=== PATIENT | female | born 1990 | race African-American/Black ===

== ENCOUNTER 2019-12-09 13:57 | Emergency (ER) | payer MEDICAID ==
[~2019-12-09] VITALS: Ht 167.6 cm; Wt 67.7 kg
--- NOTE | 2019-12-09 14:46 | NUR ---
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 PT REPORTS SHE WAS DRINKING LAST NIGHT.
--- NOTE | 2019-12-09 15:04 | NUR ---
PT TO ROOM AT THIS TIME
--- NOTE | 2019-12-09 15:15 | NUR ---
CONTACT WITH PT, 29 YR OLD FEMALE HERE WITH C/O "A LOT OF VOMITING AND BODY ACHES AND MY STOMACH HAS BEEN KILLING ME" BEGAN ABOUT 0500. "NOT SURE IF IT IS ALCOHOL POISONING OR SOMETHING" DRINKING LAST NIGHT. LAST DRINK ABOUT 0300. PT LAYING ON GURNEY, SHIVERING.
[2019-12-09] MEDS ORDERED: ONDANSETRON 2MG/ML, 2ML ONE (15:25)
[2019-12-09 15:26] LABS: BASOPHILS # (AUTO) 0.04 x10^3/uL (0-0.1); BASOPHILS % (AUTO) 1 % (0-1); EOSINOPHILS # (AUTO) 0.03 x10^3/uL (0-0.4); EOSINOPHILS % (AUTO) 0 % (1-7); LYMPHOCYTES # (AUTO) 0.77 x10^3/uL (1-3.4); LYMPHOCYTES % (AUTO) 8 % (22-44); MD NO; MEAN CORPUSCULAR HEMOGLOBIN 29.9 pg (27.0-34.8); MEAN CORPUSCULAR VOLUME 90.7 fL (80-100); MEAN PLATELET VOLUME 8.2 fL (7.4-10.4); MONOCYTES # (AUTO) 0.31 x10^3/uL (0.2-0.8); MONOCYTES % (AUTO) 3 % (2-9); NEUTROPHILS # (AUTO) 8.46 x10^3/uL (1.8-6.8); NEUTROPHILS % (AUTO) 88 % (42-75); PLATELET COUNT 257 x10^3/uL (130-400)
[2019-12-09] MEDS ORDERED: MORPHINE SULFATE 4 MG/ML, 1ML ONE (15:26)
[2019-12-09] MEDS ORDERED: ONDANSETRON 2MG/ML, 2ML IVPush ONE (15:30)
[2019-12-09] MEDS ORDERED: SODIUM CHLORIDE FLUSH 10ML SYR IVF ONE (15:30)
[2019-12-09] MEDS ORDERED: MORPHINE SULFATE 4 MG/ML, 1ML IVPush PRN (15:30)
[2019-12-09] MEDS ORDERED: SODIUM CHLORIDE 0.9% 1,000ML IVBOLUS ONE (15:30)
--- NOTE | 2019-12-09 15:37 | NUR ---
PT MEDICATED FOR 10/10 PAIN AND NAUSEA ORDERED. IV INFUSING WITHOUT REDNESS/SWELLING. PT ASKING FOR WATER AND ICE CHIPS. DISCUSSED NPO AT THIS TIME R/T VOMITING. PT PROVIDED WITH LEMON GLYCERIN SWABS. CHEPE PAWS WARMER IN PLACE FOR PT COMFORT. AUTO BP AND PULSE OX IN PLACE. PT FRIEND AT BEDSIDE. PT AWARE URINE SPECIMAN NEEDED. VERBALIZED UNDERSTANDING. NO OTHER NEEDS EXPRESSED AT THIS TIME.
[2019-12-09 15:38] LABS: CHLORIDE 110 mmol/L (98-107)
[2019-12-09 15:39] LABS: ALANINE AMINOTRANSFERASE 22 U/L (12-78); ALBUMIN 3.9 g/dL (3.4-5.0); ANION GAP 7 mmol/L (5-15); CALCIUM 8.9 mg/dL (8.5-10.1); CREATININE 0.71 mg/dL (0.55-1.02)
[2019-12-09 15:43] LABS: ALKALINE PHOSPHATASE 63 U/L (45-117); BILIRUBIN,TOTAL 0.2 mg/dL (0.2-1.0); TOTAL PROTEIN 8.4 g/dL (6.4-8.2)
--- NOTE | 2019-12-09 16:15 | NUR ---
PER WE DO NOT NEED TO COLLECT A URINE SAMPLE. PT TO BE DC AFTER IVF.
--- NOTE | 2019-12-09 16:33 | NUR ---
PT PAIN DECREASED TO 5/10. DENIES N/V. TAKING SIPS OF PO FLUIDS. NO NEEDS EXPRESSED AT THIS TIME.
[2019-12-09 16:42] VITALS: BP 123/90
--- NOTE | 2019-12-09 16:42 | NUR ---
Patient given discharge instructions and they have confirmed that they understand the instructions. Patient ambulatory with steady gait.
== END 2019-12-09 16:44 | disposition home or self-care (01) ==
LOC: ED 15:42
DX: R10.33 Periumbilical pain (principal); R10.84 Generalized abdominal pain; R11.2 Nausea with vomiting, unspecified
CPT/HCPCS: 36415; 80053; 83690; 84703; 85025; 96361; 96374; 96375; 99284; J2270; J2405; J7030

== ENCOUNTER 2020-06-21 15:59 | Emergency (ER) | payer MEDICAID ==
[~2020-06-21] VITALS: Ht 165.1 cm; Wt 77.3 kg
[2020-06-21 16:03] VITALS: BP 127/76
[2020-06-21] MEDS ORDERED: PROPARACAINE OPHTH 0.5%, 15ML RIGHTEYE ONE (16:30)
[2020-06-21] MEDS ORDERED: FLUORESCEIN OPHTHALMIC 1 MG STRIP RIGHTEYE ONE (16:30)
[2020-06-21] MEDS ORDERED: FLUORESCEIN OPHTHALMIC 1 MG STRIP ONE (16:31)
[2020-06-21] MEDS ORDERED: PROPARACAINE OPHTH 0.5%, 15ML ONE (16:31)
== END 2020-06-21 17:15 | disposition home or self-care (01) ==
LOC: ED 16:30
DX: B30.1 Conjunctivitis due to adenovirus (principal)
CPT/HCPCS: 99283

== ENCOUNTER 2021-07-03 10:10 | Emergency (ER) | payer MEDICAID ==
[~2021-07-03] VITALS: Ht 162.6 cm; Wt 77.0 kg
[2021-07-03] MEDS ORDERED: KETOROLAC 30 MG/1 ML IVPush ONE (14:00)
[2021-07-03] MEDS ORDERED: DIPHENHYDRAMINE 50 MG/ML, 1ML IVPush ONE (14:00)
[2021-07-03] MEDS ORDERED: METOCLOPRAMIDE 5 MG/ML, 2ML IVPush ONE (14:00)
[2021-07-03] MEDS ORDERED: SODIUM CHLORIDE FLUSH 10ML SYR IVF ONE (14:00)
[2021-07-03] MEDS ORDERED: SODIUM CHLORIDE 0.9% 1,000ML IVBOLUS ONE (14:00)
--- NOTE | 2021-07-03 15:22 | NUR ---
cosmetic surgeon note: Pt to room from lobby.
[2021-07-03] MEDS ORDERED: KETOROLAC 30 MG/1 ML ONE (15:36)
[2021-07-03] MEDS ORDERED: DIPHENHYDRAMINE 50 MG/ML, 1ML ONE (15:36)
[2021-07-03] MEDS ORDERED: METOCLOPRAMIDE 5 MG/ML, 2ML ONE (15:37)
--- NOTE | 2021-07-03 15:47 | NUR ---
pt medicated per emar.
--- NOTE | 2021-07-03 17:09 | NUR ---
DR. SMITH TO BEDSIDE.
[2021-07-03 17:33] VITALS: BP 120/73
--- NOTE | 2021-07-03 17:55 | NUR ---
Patient given discharge instructions and they have confirmed that they understand the instructions. Patient ambulatory with steady gait. NAD, all questions answered appropriately, denies additional needs at this time. No personal belongings left in room after discharge.
== END 2021-07-03 22:08 | disposition home or self-care (01) ==
LOC: ED 22:02
DX: G43.009 Migraine without aura, not intractable, without status migrainosus (principal); H57.89 Other specified disorders of eye and adnexa
CPT/HCPCS: 96361; 96374; 96375; 99285; J1200; J1885; J2765; J7030